=== PATIENT | female | born 1945 | race Hispanic/Latino ===

== ENCOUNTER 2016-07-05 17:41 | Outpatient (CLI) | payer MEDICARE, OTHER ==
[2016-07-05 19:28] LABS: #Basophils 0.1 thou/uL (0.0-0.2); #Eosinphils 0.1 thou/uL (0.0-0.7); #Lymphocytes 1.8 thou/uL (1.20-3.40); #Monocytes 0.5 thou/uL (0.11-0.59); #Neutrophils 7.2 thou/uL (1.40-6.50); %Basophils 0.6 % (0.0-1.0); %Eosinophils 0.9 % (0.0-10.0); Hematocrit 46.5 % (36.0-47.0); Mean Platelet Volume 6.2 fL (7.4-10.4); White Blood Cell (WBC) Count 9.6 thou/uL (4.8-10.8)
[2016-07-05 19:33] LABS: ALT (SGPT) 13 U/L (0-55); AST (SGOT) 23 U/L (5-34); Alkaline Phosphatase 151 U/L (40-150); Anion Gap 15 mmol/L (10-20); BUN (Urea Nitrogen) 16 mg/dL (9.8-20.1); Bilirubin, Total 0.7 mg/dL (0.2-1.2); Calc. Creatinine Clearance 0 mL/min (70-130); Carbon Dioxide 25 mmol/L (23-31); Chloride 105 mmol/L (98-107); Estimated GFR-MDRD 79; Globulin 2.8 g/dL (2.4-3.5); LDL Cholesterol, Calculated 68 mg/dL; Protein, Total 7.1 g/dL (5.8-8.1)
[2016-07-05 19:34] LABS: Hemoglobin A1c 6.9 % (4.0-6.0)
[2016-07-06 17:33] LABS: Microalbumin Urine 2.9 mg/dL (0.5-50.0)
== END 2016-07-05 17:42 | disposition home or self-care (01) ==
LOC: HPCALD 17:41
PROVIDERS: ATTEND Family Medicine
DX: E78.5 Hyperlipidemia, unspecified (principal); E11.9 Type 2 diabetes mellitus without complications
CPT/HCPCS: 80053; 80061; 82043; 82570; 83036; 84443; 85025

== ENCOUNTER 2017-10-18 03:39 | Emergency (ER) | payer MEDICARE, OTHER ==
[2017-10-18] MEDS ORDERED: methylPREDNISolone Sod Succ/PF 125 MG/2 ML VIAL ONE (03:55)
[2017-10-18] MEDS ORDERED: EPINEPHrine 1 MG/10 ML Abboject SYRINGE ONE (03:55)
[2017-10-18] MEDS ORDERED: diphenhydrAMINE 50 MG/ML VIAL ONE (03:55)
[2017-10-18] MEDS ORDERED: EPINEPHrine 1 mg/ml MDV (1ml Charge) ONE (03:56)
[2017-10-18] MEDS ORDERED: Famotidine In NaCl 20 mg/50 ml Premix Bag ONE (03:57)
[2017-10-18 04:21] LABS: #Basophils 0.1 thou/uL (0.0-0.2); #Eosinphils 0.1 thou/uL (0.0-0.7); #Lymphocytes 3.7 thou/uL (1.20-3.40); #Monocytes 0.9 thou/uL (0.11-0.59); #Neutrophils 7.1 thou/uL (1.40-6.50); %Eosinophils 1.2 % (0.0-10.0); %Lymphocytes 30.8 % (21.0-51.0); %Monocytes 7.5 % (0.0-10.0); %Neutrophils 59.5 % (42.0-75.0); Hemoglobin 13.4 g/dL (12.0-16.0); Mean Corpuscular HGB CONC 33.9 g/dL (32.0-36.0); Mean Corpuscular Volume 85.6 fl (81.0-99.0); Mean Platelet Volume 6.4 fL (7.4-10.4); Platelet Count 246 thou/uL (130-400); Red Blood Cell (RBC) Count 4.63 mill/uL (4.20-5.40); White Blood Cell (WBC) Count 11.9 thou/uL (4.8-10.8)
[2017-10-18 04:32] LABS: ALT (SGPT) 17 U/L (8-55); AST (SGOT) 21 U/L (5-34); Alkaline Phosphatase 149 U/L (40-150); Anion Gap 16 mmol/L (10-20); BUN (Urea Nitrogen) 22 mg/dL (9.8-20.1); Bilirubin, Total 0.6 mg/dL (0.2-1.2); Calc. Creatinine Clearance 0 mL/min (70-130); Carbon Dioxide 25 mmol/L (23-31); Chloride 102 mmol/L (98-107); Estimated GFR-MDRD 76; Globulin 2.9 g/dL (2.4-3.5); Glucose 107 mg/dL (83-110); Potassium 4.1 mmol/L (3.5-5.1); Protein, Total 6.9 g/dL (6.0-8.3); Sodium 139 mmol/L (136-145)
== END 2017-10-18 04:43 | disposition short-term general hospital (02) ==
LOC: BURERS 03:39
DX: T78.3XXA Angioneurotic edema, initial encounter (principal); E11.9 Type 2 diabetes mellitus without complications; I10 Essential (primary) hypertension; Z79.84 Long term (current) use of oral hypoglycemic drugs; Z79.899 Other long term (current) drug therapy
CPT/HCPCS: 80053; 85025; 94760; 96374; 96375; J0171; J1200; J2930

== ENCOUNTER 2019-01-08 12:51 | Outpatient (CLI) | payer MEDICARE, OTHER ==
--- NOTE | 2019-01-13 10:51 | ULT ---
CAROTID ULTRASOUND: DATE: 01/08/2019. NOTE: This study did not show up in work flow to be read after it was done, thus the delay. FINDINGS: Color duplex Doppler ultra sonography of the carotid and vertebral system was performed. The 2D imag es show minimal intimal thickening around the carotid bifurcations, but no large obstructing plaques. Doppler analysis of the right carotid system showed peak velocities of 126/27 cm/s in the right ICA. They were 116/20 in the right FRANCO. Systolic velocity ratio was 1.61. These are all normal values. Vertebral flow on the right was antegrade. Doppler analysis of the left carotid system showed peak velocities of 91/16 in the left ICA and 82/21 in the left ECA. Peak systolic velocity ratio was 0.84. These are all normal values. Vertebral bl ow in the left was antegrade. IMPRESSION: No significant findings. No evidence of hemodynamically significant stenoses. POS: HOME
== END 2019-01-08 12:52 | disposition home or self-care (01) ==
LOC: BURULT 12:51
PROVIDERS: ATTEND Family Medicine
DX: R42 Dizziness and giddiness (principal); E78.5 Hyperlipidemia, unspecified; R55 Syncope and collapse
CPT/HCPCS: 93880

== ENCOUNTER 2025-05-15 16:12 | Emergency (ER) | payer MEDICARE ==
[2025-05-15] MEDS ORDERED: Acetaminophen 500 MG TAB ONE (17:25)
== END 2025-05-15 18:24 | disposition home or self-care (01) ==
LOC: BURERS 16:12
DX: S42.471A Displaced transcondylar fracture of right humerus, initial encounter for closed fracture (principal); E11.9 Type 2 diabetes mellitus without complications; E78.00 Pure hypercholesterolemia, unspecified; I10 Essential (primary) hypertension; G20.A1 Parkinson's disease without dyskinesia, without mention of fluctuations; Z79.82 Long term (current) use of aspirin; Z79.899 Other long term (current) drug therapy
CPT/HCPCS: 24530